=== PATIENT | male | born 1935 | race Two or more races ===

== ENCOUNTER 2020-08-11 06:24 | Day surgery (SDC) | payer OTHER ==
[~2020-08-11 06:24] MED LIST: COZAAR25 MG PO; LYRICA100 MG PO; NORVASC5 MG PO
== END 2020-08-11 11:00 | disposition home or self-care (01) ==
LOC: CIR.AMB 06:24
PROVIDERS: ATTEND Anesthesiology Pain Medicine
DX: M99.73 Connective tissue and disc stenosis of intervertebral foramina of lumbar region (principal); Z20.822 Contact with and (suspected) exposure to COVID-19